=== PATIENT | female | born 1995 | race Caucasian/White ===

== ENCOUNTER 2018-01-18 17:24 | Emergency (ER) | payer SELFPAY ==
[2018-01-18] MEDS ORDERED: NORMAL SALINE 1000 ML 1,000 ML IV ONE ×2 (17:58→22:27)
[2018-01-18] MEDS ORDERED: KETOROLAC TROMETHAMINE INJ/PF 30 MG/1 ML SDV IV ONE (17:58)
[2018-01-18] MEDS ORDERED: ONDANSETRON HCL INJ/PF 4 MG/2 ML SDV IV ONE (17:58)
[2018-01-18] MEDS ORDERED: FENTANYL CITRATE INJ/PF 100 MCG/2 ML AMPUL IV ONE (17:58)
--- NOTE | 2018-01-18 18:00 | ER Document Report ---
ED Medical Screen (RME) - General Chief Complaint: Abdominal Pain Stated Complaint: ABDOMINAL PAIN Time Seen by Provider: 01/18/18 17:51 Notes: 22 years old female with a history of anxiety, bipolar, takes lorazepam 1 mg twice a day for the last 8 years. Presents today with right flank pain and right sided abdominal pain associated with nausea and vomited prior to coming to the ED. She also had constipated since last Sunday, but had a small bowel movement today prior to arrival. Denies any dysuria frequency urgency. Denies any vaginal discharge. Denies being . TRAVEL OUTSIDE OF THE [place] IN LAST 30 DAYS: No - Related Data Allergies/Adverse Reactions: sulfamethoxazole [From Bactrim] Allergy (Verified 01/18/18 17:27) trimethoprim [From Bactrim] Allergy (Verified 01/18/18 17:27) Past Medical History - Social History Chew tobacco use (# tins/day): No Frequency of alcohol use: None Drug Abuse: None Renal/ Medical History: Denies: Hx Peritoneal Dialysis Psychiatric Medical History: Reports: Hx Bipolar Disorder Past Surgical History: Reports: Hx Oral Surgery Physical Exam - Vital signs Vitals: Temp Pulse Resp BP Pulse Ox 99.4 F 104 H 16 105/66 97 01/18/18 17:32 01/18/18 17:32 01/18/18 17:32 01/18/18 17:32 01/18/18 17:32 Course - Vital Signs Vital signs: Temp Pulse Resp BP Pulse Ox 99.4 F 104 H 16 105/66 97 01/18/18 17:32 01/18/18 17:32 01/18/18 17:32 01/18/18 17:32 01/18/18 17:32
[2018-01-18 18:07] LABS: AMORPHOUS SEDIMENT,URINE TRACE /HPF; APPEARANCE,URINE SLIGHTLY-CLOUDY; BILIRUBIN,URINE NEGATIVE (NEGATIVE); COLOR,URINE YELLOW; GLUCOSE, URINE NEGATIVE (NEGATIVE); KETONES,URINE NEGATIVE (NEGATIVE); LEUKOCYTE ESTERASE,URINE LARGE (NEGATIVE); NITRITE,URINE NEGATIVE (NEGATIVE); PROTEIN,URINE NEGATIVE (NEGATIVE); UROBILINOGEN,URINE NEGATIVE mg/dL (<2.0)
[2018-01-18 18:48] LABS: ABSOLUTE BASOPHILS # (AUTO) 0.1 10^3/uL (0.0-0.2); ABSOLUTE EOSINOPHILS # (AUTO) 0.3 10^3/uL (0.0-0.6); ABSOLUTE LYMPHOCYTES (AUTO) 3.2 10^3/uL (0.5-4.7); ABSOLUTE MONOCYTES (AUTO) 0.4 10^3/uL (0.1-1.4); ABSOLUTE NEUT (AUTO) 4.9 10^3/uL (1.7-8.2); BASOPHILS % (AUTO) 1.2 % (0-2); HEMATOCRIT 43.7 % (36.0-47.0); HEMOGLOBIN 15.2 g/dL (12.0-15.5); LYMPHOCYTES % (AUTO) 36.3 % (13-45); MEAN CORPUSCULAR HEMOGLOBIN 33.2 pg (27.0-33.4); MEAN CORPUSCULAR HGB CONC 34.7 g/dL (32.0-36.0); MEAN CORPUSCULAR VOLUME 96 fl (80-97); MONOCYTES % (AUTO) 4.2 % (3-13); PLATELET COUNT 289 10^3/uL (150-450); RED BLOOD COUNT 4.56 10^6/uL (3.72-5.28); RED CELL DISTRIBUTION WIDTH 12.9 % (11.5-14.0); SEGMENTED NEUTROPHILS % (AUTO) 55.3 % (42-78); TOTAL CELLS COUNTED % (AUTO) 100 %; WHITE BLOOD COUNT 8.9 10^3/uL (4.0-10.5)
--- NOTE | 2018-01-18 18:54 | RADIOLOGY REPORT (SQ) ---
EXAM DESCRIPTION: ACUTE ABDOMEN SERIES COMPLETED DATE/TIME: 01/18/2018 6:32 pm REASON FOR STUDY: Abdominal pain COMPARISON: None. NUMBER OF VIEWS: Three views. TECHNIQUE: Frontal chest, supine abdomen and upright/decubitus abdomen radiographic images acquired. LIMITATIONS: None. FINDINGS: CHEST: Lungs clear of infiltrates. FREE AIR: None. No abnormal gas collections. BOWEL GAS PATTERN: Nonobstructive pattern. No dilated loops or air fluid levels. CALCIFICATIONS: No suspicious calcifications. HARDWARE: None in the abdomen. SOFT TISSUES: No gross mass or suggestion of organomegaly. BONES: Levoconvex lateral curvature of the spine at the thoracolumbar junction. OTHER: No other significant finding. IMPRESSION: NO RADIOGRAPHIC EVIDENCE FOR ACUTE ABDOMINAL DISEASE. TECHNICAL DOCUMENTATION: JOB ID: [id number] [employer]- All Rights Reserved Reading location - IP/workstation name: [email or web address]
[2018-01-18 19:04] LABS: ALANINE AMINOTRANSFERASE 61 U/L (9-52); ALKALINE PHOSPHATASE 53 U/L (38-126); ANION GAP 13 (5-19); ASPARTATE AMINO TRANSFERASE 50 U/L (14-36); BILIRUBIN,DIRECT 0.3 mg/dL (0.0-0.4); BILIRUBIN,TOTAL 0.5 mg/dL (0.2-1.3); BLOOD UREA NITROGEN 9 mg/dL (7-20); CALCIUM 10.6 mg/dL (8.4-10.2); CARBON DIOXIDE 30 mmol/L (22-30); CHLORIDE 103 mmol/L (98-107); GLUCOSE 85 mg/dL (75-110); POTASSIUM 4.7 mmol/L (3.6-5.0); SODIUM 145.8 mmol/L (137-145); TOTAL PROTEIN 8.5 g/dL (6.3-8.2)
[2018-01-18] MEDS ORDERED: MORPHINE SULFATE 10 MG/ML INJ IV ONE ×2 (20:57→22:27)
--- NOTE | 2018-01-18 21:00 | ER Document Report ---
ED General - General Chief Complaint: Abdominal Pain Stated Complaint: ABDOMINAL PAIN Time Seen by Provider: 01/18/18 17:51 Mode of Arrival: Ambulatory Information source: Patient Notes: Patient is an otherwise healthy 22-year-old female who presents with chief complaint of mid-abdominal pain that started 2-3 days ago. Patient reports the pain was mild but has increased in intensity. Patient reports that movement and ambulation makes the pain worse. Patient reports that the pain radiates to her right flank. Patient denies any fever, dysuria, urgency or frequency with urination. Patient reports vomiting 1 last night. TRAVEL OUTSIDE OF THE [place] IN LAST 30 DAYS: No - Related Data Allergies/Adverse Reactions: sulfamethoxazole [From Bactrim] Allergy (Verified 01/18/18 17:27) trimethoprim [From Bactrim] Allergy (Verified 01/18/18 17:27) Past Medical History - General Information source: Patient - Social History Smoking Status: Current Every Day Smoker Chew tobacco use (# tins/day): No Frequency of alcohol use: None Drug Abuse: None Family History: Reviewed & Not Pertinent Patient has suicidal ideation: No Patient has homicidal ideation: No Renal/ Medical History: Denies: Hx Peritoneal Dialysis Psychiatric Medical History: Reports: Hx Bipolar Disorder Past Surgical History: Reports: Hx Oral Surgery Review of Systems - Review of Systems Constitutional: No symptoms reported EENT: No symptoms reported Cardiovascular: No symptoms reported Respiratory: No symptoms reported Gastrointestinal: See HPI Genitourinary: No symptoms reported Female Genitourinary: No symptoms reported Musculoskeletal: No symptoms reported Skin: No symptoms reported Hematologic/Lymphatic: No symptoms reported Neurological/Psychological: No symptoms reported Physical Exam - Vital signs Vitals: Temp Pulse Resp BP Pulse Ox 99.4 F 104 H 16 105/66 97 01/18/18 17:32 01/18/18 17:32 01/18/18 17:32 01/18/18 17:32 01/18/18 17:32 - Notes Notes: PHYSICAL EXAMINATION: GENERAL: Well-appearing, well-nourished and in no acute distress. HEAD: Atraumatic, normocephalic. EYES: Pupils equal round and reactive to light, extraocular movements intact, conjunctiva are normal. ENT: Nares patent, oropharynx clear without exudates. Moist mucous membranes. NECK: Normal range of motion, supple without lymphadenopathy LUNGS: Breath sounds clear to auscultation bilaterally and equal. No wheezes rales or rhonchi. HEART: Regular rate and rhythm without murmurs ABDOMEN: Soft, nondistended abdomen. No guarding, no rebound. No masses appreciated. Tenderness to palpation to right lower quadrant and right flank. Female : Normal vaginal exam, no CMT, no pelvic pain, no adnexal tenderness. Musculoskeletal: Normal range of motion, no pitting or edema. No cyanosis. NEUROLOGICAL: Cranial nerves grossly intact. Normal speech, normal gait. Normal sensory, motor exams PSYCH: Normal mood, normal affect. SKIN: Warm, Dry, normal turgor, no rashes or lesions noted. Course - Re-evaluation Re-evalutation: Acute abdominal series is negative for any stool burden. CBC is normal. HCG is negative. Urinalysis reveals moderate blood and large leukocytes. CMP with mildly elevated AST and ALT. Patient reports that her menstrual cycle ended Sunday. Patient with tenderness to the right lower quadrant and right flank. 01/18/18 22:25 CT renal stone study is negative for any renal stones. Patient reevaluated and found to continue to have right flank pain, no pain to right lower quadrant as this has resolved. Will perform pelvic, and order additional IV fluids and analgesics. Patient much improved after dilaudid and additional fluids. Patients vaginal specimens all negative. Will discharge patient with likely pyelonephritis based on urine results and physical exam. Vitals are stable. Unlikely appendicitis due to location of pain. Patient will be instructed to return for repeat evaluation in 12 hours if not improved, sooner if worsening or develops fever. - Vital Signs Vital signs: Temp Pulse Resp BP Pulse Ox 98.4 F 55 L 16 108/62 97 01/18/18 22:44 01/18/18 22:44 01/18/18 22:44 01/18/18 22:44 01/18/18 22:44 - Laboratory Result Diagrams: 01/18/18 18:18 01/18/18 18:18 Laboratory results interpreted by me: 01/18/18 01/18/18 17:30 18:18 Sodium 145.8 H Calcium 10.6 H AST 50 H ALT 61 H Total Protein 8.5 H Urine Blood MODERATE H Ur Leukocyte Esterase LARGE H Discharge - Discharge Clinical Impression: Abdominal pain Qualifiers: Abdominal location: unspecified location Qualified Code(s): R10.9 - Unspecified abdominal pain Urinary tract infection Qualifiers: Urinary tract infection type: acute cystitis Hematuria presence: with hematuria Qualified Code(s): N30.01 - Acute cystitis with hematuria Condition: Stable Disposition: HOME, SELF-CARE Additional Instructions: Pyelonephritis Your evaluation shows evidence of pyelonephritis. This is an infection in the kidney. Typical symptoms are fever, pain in the flank, pain on urination, and frequent urination. Many cases of pyelonephritis can be treated at home. Hospital care may be necessary for patients who are very ill, or elderly or . Pyelonephritis is treated with antibiotics. Be sure to take all the medication as prescribed. Drink plenty of liquids (about three quarts per day) . You may take acetaminophen for fever. You should feel significantly improved within two days. You should have a recheck of your urine in about one week to insure that the infection is gone. Return for a re-examination if your symptoms worsen in any way -- such as high fever, shaking chills, severe weakness or dizziness, severe pain, or inability to pass your urine. ABDOMINAL PAIN: There are many causes of abdominal pain. Pain can mean a serious problem requiring surgery (such as appendicitis). It can also be an innocent problem that goes away on its own (such as a viral infection). Often, time must pass to determine the cause of pain. The physician does not feel that hospitalization is necessary, at present. Things may change within the next 24 hours. Call the doctor or come back for re- examination if any problems occur, such as: (1) Pain that becomes more severe, steady, or becomes concentrated in one specific area. Also, pain that is more severe with movement or coughing. (2) Vomiting that persists or becomes more frequent. (3) Blood in the vomitus, urine, or bowel movements. Blood in the stool may have a tarry or black appearance. (4) Shaking chills or fever greater than 100 degrees F. (5) The abdomen becomes more distended or swollen. (6) Bowel movements cease. (7) Failure to improve as expected. PAIN MEDICATION INJECTION: You have received an injection of a pain medication. You should experience significant pain relief within 45 minutes. This drug is a narcotic - - it will impair your judgement, slow your reaction time and make you sleepy ( as well as relieve your pain). Narcotics also can cause nausea. You should not drive, work with machinery, or perform any task requiring mental alertness until all effects of the medication are gone -- six to eight hours. Do not take any alcohol, or sedatives, and do not take any other medication without checking with your physician. ANTINAUSEA MEDICATION: You have been given a medication to suppress nausea and vomiting. This type of medication can be given as a shot, pill, or suppository. It will usually last for many hours. Pills and shots usually last six to eight hours, suppositories last about 12 hours. For the typical illness, only one or two doses of the medication may be necessary. Mild lightheadedness may occur. This type of medicine can cause drowsiness. Do not drive or operate dangerous machinery while under its influence. Do not mix with alcohol. See your doctor at once if you have muscle spasms or tightness, or uncontrollable motions (particularly of the neck, mouth, or jaw). Persistent vomiting or severe lightheadedness should also be evaluated by the physician. FOLLOW-UP CARE: You should return for re-evaluation in 12 hours if your abdominal pain is still present or sooner if your condition worsens. This follow-up visit is important. If you are unable to return, or feel that the return visit is unnecessary, please call us. Prescriptions: Ciprofloxacin HCl [Cipro 500 mg Tablet] 500 mg PO BID #14 tablet Forms: Return to Work Referrals: [facility] [Provider Group] - Follow up as needed
--- NOTE | 2018-01-18 21:45 | RADIOLOGY REPORT (SQ) ---
EXAM DESCRIPTION: CT LTD RENAL STONE PROTOCOL ON COMPLETED DATE/TIME: 01/18/2018 9:17 pm REASON FOR STUDY: RLQ pain COMPARISON: None. TECHNIQUE: CT scan of the abdomen and pelvis performed without intravenous or oral contrast. Images reviewed with lung, soft tissue, and bone windows. Reconstructed coronal and sagittal MPR images revi ewed. All images stored on PACS. All CT scanners at this facility use dose modulation, iterative reconstruction, and/or weight based d osing when appropriate to reduce radiation dose to as low as reasonably achievable (ALARA). [facility]: Dose Right [facility]: CareDose [facility]: Dose Right [facility]: Teradose 4D [facility]: [employer] RADIATION DOSE: CT Rad equipment meets quality standard of care and radiation dose reduction techniq ues were employed. CTDIvol: 4.8 mGy. DLP: 243 mGy-cm.mGy. LIMITATIONS: None. FINDINGS: LOWER CHEST: No significant findings. No nodules or infiltrates. NON-CONTRASTED LIVER, SPLEEN, ADRENALS: Evaluation limited by lack of IV contrast. No identified sign ificant masses. PANCREAS: No masses. No peripancreatic inflammatory changes. GALLBLADDER: No identified stones by CT criteria. No inflammatory changes to suggest cholecystitis. RIGHT KIDNEY AND URETER: No suspicious masses. Assessment limited by lack of IV contrast. No signif icant calcifications. No hydronephrosis or hydroureter. LEFT KIDNEY AND URETER: No suspicious masses. Assessment limited by lack of IV contrast. No signifi cant calcifications. No hydronephrosis or hydroureter. AORTA AND RETROPERITONEUM: No aneurysm. No retroperitoneal masses or adenopathy. BOWEL AND PERITONEAL CAVITY: No obvious masses or inflammatory changes. No free fluid. APPENDIX: Not visualized. PELVIS, BLADDER, AND ABDOMINAL WALL:No abnormal masses. No free fluid. Bladder normal. BONES: Levoconvex lateral curvature of the spine at the thoraco lumbar junction. OTHER: No other significant finding. IMPRESSION: 1. No evidence of urolithiasis. 2. Examination limited by noncontrast technique and a paucity of peritoneal fat. No discrete CT fernando dence of acute intra- abdominal infectious/ inflammatory process. COMMENT: Quality ID # [id number]: Final reports with documentation of one or more dose reduction techniques (e.g., Automated exposure control, adjustment of the mA and/or kV according to patient size, use of iterative reconstruction technique) TECHNICAL DOCUMENTATION: JOB ID: [id number] [employer]- All Rights Reserved Reading location - IP/workstation name: [email or web address]
[2018-01-18] MEDS ORDERED: CEFTRIAXONE 1 GM/D5W RTU 1 GM/50 ML RTUPB IV ONE (22:42)
[2018-01-18 22:45] VITALS: BP 108/62
[2018-01-18 23:31] LABS: RBCS (WET MOUNT) NO RBCS SEEN; T.VAGINALIS (WET MOUNT) NO TRICHOMONAS SEEN; WBCS (WET MOUNT) NO WBCS SEEN; YEAST (WET MOUNT) NO YEAST SEEN
[2018-01-18] MEDS ORDERED: CEFTRIAXONE INJ 1000 MG VIAL IV ONE (23:45)
[2018-01-18] MEDS ORDERED: CEFTRIAXONE INJ 1000 MG VIAL IV PRN (23:48)
[2018-01-19] MEDS ORDERED: HYDROMORPHONE HCL INJ/PF 2 MG/ML AMPULE IV PRN (00:10)
[2018-01-19] MEDS ORDERED: CIPROFLOXACIN HCL 500 MG TABLET PO ONE (01:31)
[2018-01-19] MEDS ORDERED: ONDANSETRON ODT 4 MG TAB (6 TAB/ER DISP) PO PRN (01:31)
[2018-01-19 02:12] LABS: CHLAM PCR NOT DETECTED (NOT DETECT); GON PCR NOT DETECTED (NOT DETECT)
== END 2018-01-19 01:55 | disposition home or self-care (01) ==
LOC: ER 17:24
DX: N30.01 Acute cystitis with hematuria (principal); R74.0 Nonspecific elevation of levels of transaminase and lactic acid dehydrogenase [LDH]; Z88.1 Allergy status to other antibiotic agents; F17.200 Nicotine dependence, unspecified, uncomplicated
CPT/HCPCS: 96376; 99285; 96361; 96374; 96375; 36415; 87210; 85025; 81025; 80053; 81001; 87491; 87591; 74022; 76380; J3010; J1885; J2270; J1170; J0696; J2405; J7030

== ENCOUNTER 2018-01-20 23:08 | Emergency (ER) | payer SELFPAY ==
--- NOTE | 2018-01-21 00:16 | ER Document Report ---
ED Medical Screen (RME) - General Chief Complaint: Abdominal Pain Stated Complaint: ABDOMINAL PAIN TRAVEL OUTSIDE OF THE [place] IN LAST 30 DAYS: No - HPI Notes: 01/21/18 00:14 22-year-old female presents with abdominal and flank pain. Seen here 2 days ago with similar symptoms, underwent extensive work including labs and CT imaging, all unremarkable except for urine which showed pyuria, hematuria and trace bacteria. Patient's had persistent worsening of symptoms over the last 24 hours. Associated nausea, abdominal pain and right flank pain. - Related Data Allergies/Adverse Reactions: sulfamethoxazole [From Bactrim] Allergy (Verified 01/18/18 17:27) trimethoprim [From Bactrim] Allergy (Verified 01/18/18 17:27) Past Medical History Renal/ Medical History: Denies: Hx Peritoneal Dialysis Psychiatric Medical History: Reports: Hx Bipolar Disorder Past Surgical History: Reports: Hx Oral Surgery Physical Exam - Vital signs Vitals: Temp Pulse Resp BP Pulse Ox 98.3 F 93 18 116/64 98 01/20/18 23:45 01/20/18 23:45 01/20/18 23:45 01/20/18 23:45 01/20/18 23:45 - Notes Notes: Moderate mid abdominal and right upper quadrant tenderness. Right CVAT noted. Remainder exam unremarkable. Course - Re-evaluation Re-evalutation: 01/21/18 00:15 RAPID MEDICAL EVALUATION DISCLOSURE I have seen this patient as part of a Rapid Medical Evaluation and, if applicable, placed any initially appropriate orders. The patient will be seen and fully evaluated, including a full history and physical exam, by a provider ( in Main ED or Fast Track) when a room becomes available. - Vital Signs Vital signs: Temp Pulse Resp BP Pulse Ox 98.3 F 93 18 116/64 98 01/20/18 23:45 01/20/18 23:45 01/20/18 23:45 01/20/18 23:45 01/20/18 23:45
--- NOTE | 2018-01-21 01:05 | ER Document Report ---
ED GI/ - General Mode of Arrival: Ambulatory Information source: Patient TRAVEL OUTSIDE OF THE [place] IN LAST 30 DAYS: No <TINY OLVERA - Last Filed: 01/21/18 01:22> <SIMRAN CORREIA - Last Filed: 01/21/18 02:49> - General Chief Complaint: Abdominal Pain Stated Complaint: ABDOMINAL PAIN Time Seen by Provider: 01/21/18 00:46 Notes: 22 y.o female with bipolar disorder and anxiety presents to the ED with abd pain and RT flank pain of onset 4-5 days ago. Pt was seen here in the ED 2 days ago with the same pain and diagnosed with a UTI and prescribed Cipro. She reports that her pain was better yesterday due to the Cipro and that she slept most of he day but now she complains of worsened pain though out the day today prominently to her mid abdomen. Pt had a CT scan 2 days ago that was initially ordered with contrast but then after only consuming a small amount of contrast went through with the CT. Per my reading of the CT scan there was a large amount of stool to her bowel. Pt reports that she now has not has a BM is 3 days. Pt takes Alprazolam 2mg daily for her anxiety. She states that she is supposed to take Lamictal for her bipolar disorder but that she is not currently taking that regularly. (TINY OLVERA) - Related Data Allergies/Adverse Reactions: sulfamethoxazole [From Bactrim] Allergy (Verified 01/18/18 17:27) trimethoprim [From Bactrim] Allergy (Verified 01/18/18 17:27) Past Medical History - General Information source: Patient - Social History Smoking Status: Current Every Day Smoker Smoking Education Provided: Yes Frequency of alcohol use: None Drug Abuse: None Family History: Reviewed & Not Pertinent Patient has suicidal ideation: No Patient has homicidal ideation: No Renal/ Medical History: Denies: Hx Peritoneal Dialysis Psychiatric Medical History: Reports: Hx Anxiety, Hx Bipolar Disorder Past Surgical History: Reports: Hx Oral Surgery <TINY OLVERA - Last Filed: 01/21/18 01:22> Review of Systems - Review of Systems Constitutional: No symptoms reported EENT: No symptoms reported Cardiovascular: No symptoms reported Respiratory: No symptoms reported Gastrointestinal: See HPI, Abdominal pain, Constipation Genitourinary: See HPI, Flank pain Female Genitourinary: No symptoms reported Musculoskeletal: No symptoms reported Skin: No symptoms reported Hematologic/Lymphatic: No symptoms reported Neurological/Psychological: No symptoms reported -: Yes All other systems reviewed and negative <WADETINY - Last Filed: 01/21/18 01:22> Physical Exam <WADETINY - Last Filed: 01/21/18 01:22> <SIMRAN CORREIA - Last Filed: 01/21/18 02:49> - Vital signs Vitals: Temp Pulse Resp BP Pulse Ox 98.3 F 93 18 116/64 98 01/20/18 23:45 01/20/18 23:45 01/20/18 23:45 01/20/18 23:45 01/20/18 23:45 - Notes Notes: Physical Exam: General: Alert, appears well. Pt curses to answer yes or no. HEENT: Normocephalic. Atraumatic. PERRL. Extraocular movements intact. Oropharynx clear. Neck: Supple. Non-tender. Respiratory: No respiratory distress. Clear and equal breath sounds bilaterally. Cardiovascular: Regular rate and rhythm. Abdominal: Soft. TTP the RUQ and the upper RLQ region. No distension. Normal Bowel Sounds. Back: Non-tender. No deformity or step off. Extremities: Moves all four extremities. Upper extremities: Normal inspection. Normal ROM. Lower extremities: Normal inspection. No edema. Normal ROM. Neurological: Normal cognition. AAOx3. Normal speech. Psychological: Normal affect. Normal Mood. Skin: Warm. Dry. Normal color. (TINY OLVERA) Course - Laboratory Result Diagrams: 01/21/18 00:36 01/21/18 00:36 <TINY OLVERA - Last Filed: 01/21/18 01:22> - Laboratory Result Diagrams: 01/21/18 00:36 01/21/18 00:36 - Diagnostic Test Radiology reviewed: Image reviewed - Gallbladder ultrasound appears to have contracted gallbladder but no abnormalities., Reports reviewed - KUB shows large amount of stool in the pelvic region. <SIMRAN CORREIA - Last Filed: 01/21/18 02:49> - Vital Signs Vital signs: Temp Pulse Resp BP Pulse Ox 98.3 F 93 18 116/64 98 01/20/18 23:45 01/20/18 23:45 01/20/18 23:45 01/20/18 23:45 01/20/18 23:45 - Laboratory Laboratory results interpreted by me: 01/21/18 01/21/18 00:36 01:30 Sodium 146.9 H Calcium 10.5 H AST 41 H ALT 54 H Total Protein 8.4 H Ur Leukocyte Esterase TRACE H Discharge <TINY OLVERA - Last Filed: 01/21/18 01:22> <SIMRAN CORREIA - Last Filed: 01/21/18 02:49> - Discharge Clinical Impression: Abdominal pain Qualifiers: Abdominal location: right lower quadrant Qualified Code(s): R10.31 - Right lower quadrant pain Constipation Qualifiers: Constipation type: unspecified constipation type Qualified Code(s): K59.00 - Constipation, unspecified Condition: Stable Disposition: HOME, SELF-CARE Additional Instructions: Constipation Constipation is a common problem. It is especially likely as you get older. Constipation is a common cause of abdominal pain, but sometimes causes no symptoms at all. Causes of constipation include certain medications, dehydration, diets, inactivity, and low-fiber intake. Rarely, it can be a symptom of underlying disease. The physician has evaluated you for this. Avoid constipation by eating a diet high in fiber, fruits, and vegetables. Drink plenty of liquids. Get regular exercise. If possible, avoid constipating medicines like narcotic pain medication. Some vitamin tablets can cause constipation. Stool softeners may be needed for difficult cases. An excellent stool softener is Konsyl which is available at [facility], and [email or web address] drug store. Just add a teaspoon to a glass of pineapple or orange juice daily or twice a day if needed. Laxatives are useful for occasional constipation. You should use them only when necessary. Too-frequent use can make your bowels dependent on them. Some over the counter laxatives available without prescription are: Milk of Magnesia, 1-2 tablespoons twice a day Dulcolax, 5 mg pill or 10 mg suppository. Citrate of Magnesia, 4-5 ounces a day for a day or two For acute constipation, Fleet's Enemas and Dulcolax suppositories are helpful. Chronic, drawing kiln supervisor use of laxatives or enemas is not a good idea. Your bowel may become dependant on them. You do not need to have a bowel movement every day. Many people do fine with a bowel movement every three or four days. You should call your doctor or return for re-evaluation if you pass blood in the stool, or if you develop fever or increasing abdominal pain. Drink half of the bottle of magnesium citrate tonight. Drink lots of fluids tonight. Consider giving herself a fleets enema to help speed up the process of relieving your constipation. Drink the other half of the bottle of mag citrate throughout the day tomorrow. Try something like MiraLAX every day with a large glass of water until your bowels are moving normally again. Follow-up with a local medical doctor if not improving. RETURN TO THE EMERGENCY ROOM IF ANY NEW OR WORSENING SYMPTOMS. Scribe Attestation: 01/21/18 01:59 I personally performed the services described in the documentation, reviewed and edited the documentation which was dictated to the scribe in my presence, and it accurately records my words and actions. (SIMRAN CORREIA) Scribe Documentation - Scribe Written by Gertrude:: Gertrude Michel 01/21/18 0057 acting as scribe for :: Cornelia <TINY OLVERA - Last Filed: 01/21/18 01:22>
[2018-01-21 01:18] LABS: ABSOLUTE BASOPHILS # (AUTO) 0.1 10^3/uL (0.0-0.2); ABSOLUTE EOSINOPHILS # (AUTO) 0.2 10^3/uL (0.0-0.6); ABSOLUTE LYMPHOCYTES (AUTO) 2.7 10^3/uL (0.5-4.7); ABSOLUTE MONOCYTES (AUTO) 0.3 10^3/uL (0.1-1.4); ABSOLUTE NEUT (AUTO) 5.6 10^3/uL (1.7-8.2); HEMATOCRIT 43.2 % (36.0-47.0); LYMPHOCYTES % (AUTO) 30.6 % (13-45); MEAN CORPUSCULAR HEMOGLOBIN 33.4 pg (27.0-33.4); MEAN CORPUSCULAR HGB CONC 34.7 g/dL (32.0-36.0); MEAN CORPUSCULAR VOLUME 96 fl (80-97); MONOCYTES % (AUTO) 3.5 % (3-13); PLATELET COUNT 280 10^3/uL (150-450); RED BLOOD COUNT 4.49 10^6/uL (3.72-5.28); RED CELL DISTRIBUTION WIDTH 12.5 % (11.5-14.0); SEGMENTED NEUTROPHILS % (AUTO) 62.9 % (42-78); TOTAL CELLS COUNTED % (AUTO) 100 %; WHITE BLOOD COUNT 8.9 10^3/uL (4.0-10.5)
[2018-01-21 01:40] LABS: ALANINE AMINOTRANSFERASE 54 U/L (9-52); ALBUMIN 4.8 g/dL (3.5-5.0); ALKALINE PHOSPHATASE 69 U/L (38-126); ANION GAP 15 (5-19); ASPARTATE AMINO TRANSFERASE 41 U/L (14-36); BILIRUBIN,DIRECT 0.3 mg/dL (0.0-0.4); BILIRUBIN,TOTAL 0.3 mg/dL (0.2-1.3); BLOOD UREA NITROGEN 7 mg/dL (7-20); CALCIUM 10.5 mg/dL (8.4-10.2); CARBON DIOXIDE 27 mmol/L (22-30); CHLORIDE 105 mmol/L (98-107); GLUCOSE 93 mg/dL (75-110); LIPASE 89.2 U/L (23-300); POTASSIUM 4.1 mmol/L (3.6-5.0); SODIUM 146.9 mmol/L (137-145); TOTAL PROTEIN 8.4 g/dL (6.3-8.2)
[2018-01-21 02:08] LABS: APPEARANCE,URINE SLIGHTLY-CLOUDY; BILIRUBIN,URINE NEGATIVE (NEGATIVE); COLOR,URINE YELLOW; GLUCOSE, URINE NEGATIVE (NEGATIVE); KETONES,URINE NEGATIVE (NEGATIVE); LEUKOCYTE ESTERASE,URINE TRACE (NEGATIVE); NITRITE,URINE NEGATIVE (NEGATIVE); PROTEIN,URINE NEGATIVE (NEGATIVE); URINE SPECIFIC GRAVITY 1.015; UROBILINOGEN,URINE NEGATIVE mg/dL (<2.0)
--- NOTE | 2018-01-21 02:11 | RADIOLOGY REPORT (SQ) ---
EXAM DESCRIPTION: XR ABDOMEN 1 VIEW (KUB) COMPLETED DATE/TME: 01/21/2018 01:22 CLINICAL HISTORY: Right abdomen pain COMPARISON: None. FINDINGS: Bowel: No dilated loops of large or small bowel. Peritoneum: No free intraperitoneal air identified. Solid organs: No definite organomegaly. Calcifications: No abnormal calcifications. Bones: Iliac curvature of the lumbar spine. Other: Visualized left lung bases clear. IMPRESSION: Nonobstructive bowel gas pattern.
[2018-01-21] MEDS ORDERED: MAGNESIUM CITRATE 296 ML BOTTLE PO ONE (02:47)
[2018-01-21 03:10] VITALS: BP 120/82
--- NOTE | 2018-01-21 03:13 | RADIOLOGY REPORT (SQ) ---
EXAM DESCRIPTION: US ABDOMEN LIMITED COMPLETED DATE/TME: 01/21/2018 01:22 CLINICAL HISTORY: Right upper quadrant abdominal pain COMPARISON: None. TECHNIQUE: Real-time sonographic images of the right upper abdomen were obtained using a curved multihertz transducer. FINDINGS: Pancreas: The visualized portions of the pancreas are unremarkable. Vascular: The visualized portions of the aorta and IVC are unremarkable. Liver: The liver has normal contour and increased echogenicity. Hepatopedal flow in the portal vein confirmed with color and spectral Doppler imaging.. The common bile duct measures 0.2 cm. Gallbladder: The gallbladder is contracted. Positive reported sonographic Cornejo sign. No definite gallstones identified. Right Kidney: The right kidney measures 9.0 cm in length. No hydronephrosis, solid renal mass, or shadowing calculi. IMPRESSION: 1. The gallbladder is contracted and the patient reports a positive sonographic Cornejo's sign however no definite gallstones identified.
== END 2018-01-21 03:06 | disposition home or self-care (01) ==
LOC: ER 23:08
DX: K59.00 Constipation, unspecified (principal); N39.0 Urinary tract infection, site not specified; F41.9 Anxiety disorder, unspecified; Z79.899 Other long term (current) drug therapy; F31.9 Bipolar disorder, unspecified; T42.6X6A Underdosing of other antiepileptic and sedative-hypnotic drugs, initial encounter; F17.200 Nicotine dependence, unspecified, uncomplicated; Z91.128 Patient's intentional underdosing of medication regimen for other reason; Z91.14 Patient's other noncompliance with medication regimen; Z88.1 Allergy status to other antibiotic agents
CPT/HCPCS: 99284; 36415; 83690; 85025; 81025; 80053; 81001; 74018; 76705; J3490

== ENCOUNTER 2018-04-09 12:09 | Emergency (ER) | payer SELFPAY ==
--- NOTE | 2018-04-09 12:27 | ER Document Report ---
ED Medical Screen (RME) - General Chief Complaint: Vag Bleeding, +preg <12wks Stated Complaint: SPOTTING X2DAYS Time Seen by Provider: 04/09/18 12:20 Mode of Arrival: Ambulatory Information source: Patient Notes: Patient is a 22-year-old female who presents the emergency department with complaints of vaginal bleeding. Patient states that she is 6 weeks 5 days . She is been having brown spotting over the last 2 days. No clots. Patient states that she has been having associated pelvic cramping. She states that the pain cramping stopped this morning. Patient was seen at the [facility] [place] and had an ultrasound done this morning. No embryo or heart tones were appreciated. Patient was sent to the emergency department today for further evaluation. I have greeted and performed a rapid initial assessment of this patient. A comprehensive ED assessment and evaluation of the patient, analysis of test results and completion of the medical decision making process will be conducted by additional ED providers. PHYSICAL EXAMINATION: GENERAL: Well-appearing, well-nourished and in no acute distress. HEAD: Atraumatic, normocephalic. EYES: Pupils equal round extraocular movements intact, conjunctiva are normal. ENT: Nares patent NECK: Normal range of motion LUNGS: No respiratory distress Musculoskeletal: Normal range of motion NEUROLOGICAL: Normal speech, normal gait. PSYCH: Normal mood, normal affect. SKIN: Warm, Dry, normal turgor, no rashes or lesions noted. TRAVEL OUTSIDE OF THE [place] IN LAST 30 DAYS: No - Related Data Allergies/Adverse Reactions: sulfamethoxazole [From Bactrim] Allergy (Verified 01/18/18 17:27) trimethoprim [From Bactrim] Allergy (Verified 01/18/18 17:27) Past Medical History Renal/ Medical History: Denies: Hx Peritoneal Dialysis Psychiatric Medical History: Reports: Hx Anxiety, Hx Bipolar Disorder Past Surgical History: Reports: Hx Oral Surgery Physical Exam - Vital signs Vitals: Temp Pulse Resp BP Pulse Ox 98.7 F 106 H 16 124/71 97 04/09/18 12:17 04/09/18 12:17 04/09/18 12:17 04/09/18 12:17 04/09/18 12:17 Course - Vital Signs Vital signs: Temp Pulse Resp BP Pulse Ox 98.7 F 106 H 16 124/71 97 04/09/18 12:17 04/09/18 12:17 04/09/18 12:17 04/09/18 12:17 04/09/18 12:17
--- NOTE | 2018-04-09 13:01 | ER Document Report ---
ED General - General Chief Complaint: Vag Bleeding, +preg <12wks Stated Complaint: SPOTTING X2DAYS Time Seen by Provider: 04/09/18 12:20 Mode of Arrival: Ambulatory Notes: Patient is a 22-year-old female that is reportedly 4-6 weeks gravid that presents to the emergency department for chief complaint of vaginal spotting. Patient reports that she had an ultrasound performed about 1 week ago for proof of to apply for Medicaid, and she was advised of a repeat one performed today, which she had done, that demonstrated visible yolk sacs that did grow in size, but no heart rate, or embryo noted, estimated gestational age they report it was approximately 4 weeks. She was advised to come to the emergency department to be checked for possible miscarriage. Patient stated she had some brown discharge, but denies any clots, or significant vaginal bleeding. She denies having any pain or cramping. Denies any dysuria or hematuria. She otherwise states she is healthy. Reports that she is O+ based on prior blood testing. Past Medical History: Denies chronic medical conditions Past Surgical History: Denies surgical history Social History: Admits to smoking cigarettes daily, denies alcohol or drug use Family History: Reviewed and noncontributory for presenting illness Allergies: Reviewed, see documented allergy list. REVIEW OF SYSTEMS: Unless otherwise stated in this report the patient's positive and negative responses for review of systems for constitutional, eyes, ENT, cardiovascular, respiratory, gastrointestinal, neurological, genitourinary, musculoskeletal, and integumentary systems and related systems to the presenting problem are either as stated in the HPI or were not pertinent or were negative for the symptoms and/or complaints related to the presenting medical problem. PHYSICAL EXAMINATION: Vital signs reviewed, nursing noted reviewed. GENERAL: Well-appearing, well-nourished and in no acute distress. HEAD: Atraumatic, normocephalic. EYES: Eyes appear normal, extraocular movements intact, sclera anicteric, conjunctiva are normal. ENT: nares patent, oropharynx clear without exudates. Moist mucous membranes. NECK: Normal range of motion, supple without lymphadenopathy LUNGS: Breath sounds clear to auscultation bilaterally and equal. No wheezes rales or rhonchi. HEART: Regular rate and rhythm without murmurs ABDOMEN: Soft, nontender, normoactive bowel sounds. No rebound, guarding, or rigidity. No masses appreciated. Pelvic Exam: With a radio adjuster present the exam was explained to the patient and patient agreed to proceed with exam. On exam, no external lesions or abnormalities noted. Internal speculum exam demonstrated normal appearing cervix, small amount of blood in the vaginal vault, cervical loss was closed. EXTREMITIES: Nontender, good range of motion, no pitting or edema. NEUROLOGICAL: No focal neurological deficits. Moves all extremities spontaneously Motor and sensory grossly intact on exam. PSYCH: Normal mood, normal affect. SKIN: Warm, Dry, normal turgor, no rashes or lesions noted on exposed skin TRAVEL OUTSIDE OF THE [place] IN LAST 30 DAYS: No - Related Data Allergies/Adverse Reactions: sulfamethoxazole [From Bactrim] Allergy (Verified 04/09/18 12:42) trimethoprim [From Bactrim] Allergy (Verified 04/09/18 12:42) Past Medical History - General Information source: Patient Last Menstrual Period: 01/2018 - Social History Smoking Status: Never Smoker Chew tobacco use (# tins/day): No Frequency of alcohol use: None Drug Abuse: None Family History: Reviewed & Not Pertinent Patient has suicidal ideation: No Patient has homicidal ideation: No Renal/ Medical History: Denies: Hx Peritoneal Dialysis Psychiatric Medical History: Reports: Hx Anxiety, Hx Bipolar Disorder Past Surgical History: Reports: Hx Oral Surgery Physical Exam - Vital signs Vitals: Temp Pulse Resp BP Pulse Ox 98.7 F 106 H 16 124/71 97 04/09/18 12:17 04/09/18 12:17 04/09/18 12:17 04/09/18 12:17 04/09/18 12:17 Course - Re-evaluation Re-evalutation: Patient seen and examined vital signs reviewed. Laboratory data and imaging were ordered as appropriate for the patient's presenting symptoms and complaint, with consideration of any critical or life threatening conditions that may be associated with their obtained history and exam as noted above. Patient brought ultrasound results from an outside facility, these are reviewed , reportedly had intrauterine yolk sac, no heart tones noted, no embryo noted Results were reviewed when available and demonstrated hCG greater than 7000, it is difficult to determine whether this is a failed , or just very early , as the patient does not remember her exact first date of her last menstrual period, and her ultrasound results may just be indicative of early , and this is vaginal spotting in early this was discussed with the patient, advised her to follow-up with [facility] Her UA was unremarkable. Patient agreed with this plan of care. Results were discussed with the patient at this point, after careful consideration I feel that that patient can be discharged from the emergency department, the patient was educated treatments and reasons to return to the emergency department based on their presumed diagnosis as noted above, they were advised to followup with a primary care physician in 2-3 days. Patient was agreeable to plan of care. *Note is created using voice recognition software and may contain spelling, syntax or grammatical errors. Laboratory 04/09/18 04/09/18 12:30 13:00 Beta HCG, Quant 7069.90 H Total Beta HCG POSITIVE Urine Color YELLOW Urine Appearance SLIGHTLY-CLOUDY Urine pH 5.0 Ur Specific [place] 1.015 Urine Protein NEGATIVE Urine Glucose (UA) NEGATIVE Urine Ketones NEGATIVE Urine Blood MODERATE H Urine Nitrite NEGATIVE Urine Bilirubin NEGATIVE Urine Urobilinogen NEGATIVE Ur Leukocyte Esterase NEGATIVE Urine WBC (Auto) 2 Urine RBC (Auto) 1 Squamous Epi Cells Auto 1 Urine Mucus (Auto) OCC Urine Ascorbic Acid NEGATIVE - Vital Signs Vital signs: Temp Pulse Resp BP Pulse Ox 99 F 84 18 106/63 97 04/09/18 14:18 04/09/18 14:18 04/09/18 14:18 04/09/18 14:18 04/09/18 14:18 - Laboratory Laboratory results interpreted by me: 04/09/18 04/09/18 12:30 13:00 Beta HCG, Quant 7069.90 H Urine Blood MODERATE H Discharge - Discharge Clinical Impression: Vaginal bleeding during Condition: Stable Disposition: HOME, SELF-CARE Instructions: Bleeding During Early ([facility]) Additional Instructions: Please follow-up with [facility], if you develop lightheadedness, or significant pelvic pain, do not hesitate to return to the emergency department for repeat evaluation. Referrals: [facility] [Provider Group] - Follow up tomorrow (call for appointment. )
[2018-04-09 13:51] LABS: APPEARANCE,URINE SLIGHTLY-CLOUDY; BILIRUBIN,URINE NEGATIVE (NEGATIVE); COLOR,URINE YELLOW; GLUCOSE, URINE NEGATIVE (NEGATIVE); KETONES,URINE NEGATIVE (NEGATIVE); LEUKOCYTE ESTERASE,URINE NEGATIVE (NEGATIVE); NITRITE,URINE NEGATIVE (NEGATIVE); PROTEIN,URINE NEGATIVE (NEGATIVE); URINE SPECIFIC GRAVITY 1.015; UROBILINOGEN,URINE NEGATIVE mg/dL (<2.0)
[2018-04-09 14:19] VITALS: BP 106/63
== END 2018-04-09 14:23 | disposition home or self-care (01) ==
LOC: ER 12:09
DX: O26.859 Spotting complicating pregnancy, unspecified trimester (principal); Z3A.00 Weeks of gestation of pregnancy not specified; Z88.1 Allergy status to other antibiotic agents
CPT/HCPCS: 36415; 81001; 84702; 99284

== ENCOUNTER 2018-04-10 14:36 | Emergency (ER) | payer SELFPAY ==
--- NOTE | 2018-04-10 15:56 | ER Document Report ---
ED Medical Screen (RME) - General Chief Complaint: Vag Bleeding, +preg <12wks Stated Complaint: VAGINAL BLEEDING Time Seen by Provider: 04/10/18 15:50 Notes: 22 years old female was seen here a year today, was and spotting, today having profuse bleeding. Had pelvic exam done yesterday. TRAVEL OUTSIDE OF THE [place] IN LAST 30 DAYS: No - Related Data Allergies/Adverse Reactions: sulfamethoxazole [From Bactrim] Allergy (Verified 04/10/18 14:40) trimethoprim [From Bactrim] Allergy (Verified 04/10/18 14:40) Past Medical History Renal/ Medical History: Denies: Hx Peritoneal Dialysis Psychiatric Medical History: Reports: Hx Anxiety, Hx Bipolar Disorder Past Surgical History: Reports: Hx Oral Surgery Physical Exam - Vital signs Vitals: Temp Pulse Resp BP Pulse Ox 99.5 F 97 16 117/68 99 04/10/18 15:05 04/10/18 15:05 04/10/18 15:05 04/10/18 15:05 04/10/18 15:05 Course - Vital Signs Vital signs: Temp Pulse Resp BP Pulse Ox 99.5 F 97 16 117/68 99 04/10/18 15:05 04/10/18 15:05 04/10/18 15:05 04/10/18 15:05 04/10/18 15:05
[2018-04-10 16:20] LABS: ABSOLUTE BASOPHILS # (AUTO) 0.1 10^3/uL (0.0-0.2); ABSOLUTE EOSINOPHILS # (AUTO) 0.3 10^3/uL (0.0-0.6); ABSOLUTE LYMPHOCYTES (AUTO) 2.5 10^3/uL (0.5-4.7); ABSOLUTE MONOCYTES (AUTO) 0.5 10^3/uL (0.1-1.4); ABSOLUTE NEUT (AUTO) 8.9 10^3/uL (1.7-8.2); BASOPHILS % (AUTO) 0.6 % (0-2); EOSINOPHILS % (AUTO) 2.1 % (0-6); HEMATOCRIT 38.3 % (36.0-47.0); HEMOGLOBIN 13.5 g/dL (12.0-15.5); LYMPHOCYTES % (AUTO) 20.8 % (13-45); MEAN CORPUSCULAR HEMOGLOBIN 33.3 pg (27.0-33.4); MEAN CORPUSCULAR HGB CONC 35.3 g/dL (32.0-36.0); MEAN CORPUSCULAR VOLUME 94 fl (80-97); MONOCYTES % (AUTO) 3.9 % (3-13); PLATELET COUNT 281 10^3/uL (150-450); RED BLOOD COUNT 4.07 10^6/uL (3.72-5.28); RED CELL DISTRIBUTION WIDTH 12.2 % (11.5-14.0); SEGMENTED NEUTROPHILS % (AUTO) 72.6 % (42-78); TOTAL CELLS COUNTED % (AUTO) 100 %; WHITE BLOOD COUNT 12.2 10^3/uL (4.0-10.5)
[2018-04-10 16:30] LABS: APPEARANCE,URINE SLIGHTLY-CLOUDY; BILIRUBIN,URINE NEGATIVE (NEGATIVE); COLOR,URINE YELLOW; GLUCOSE, URINE NEGATIVE (NEGATIVE); KETONES,URINE NEGATIVE (NEGATIVE); LEUKOCYTE ESTERASE,URINE TRACE (NEGATIVE); NITRITE,URINE NEGATIVE (NEGATIVE); PROTEIN,URINE NEGATIVE (NEGATIVE); UROBILINOGEN,URINE NEGATIVE mg/dL (<2.0)
--- NOTE | 2018-04-10 18:18 | RADIOLOGY REPORT (SQ) ---
EXAM DESCRIPTION: U/S OB TRANSVAG W/DOPPLER COMPLETED DATE/TIME: 04/10/2018 6:08 pm REASON FOR STUDY: and vaginal bleeding COMPARISON: None. TECHNIQUE: Transvaginal static and realtime grayscale images acquired of the pelvis. Additional ramone cted spectral and color Doppler images recorded. All images stored on PACs. CLINICAL AGE: Not available. BHCG: Not available. LIMITATIONS: None. FINDINGS: UTERUS: No visualized intrauterine . RIGHT ADNEXA: Normal ovary with normal vascular flow. No adnexal free fluid. No adnexal masses. LEFT ADNEXA: Ovary not identified due to poor acoustical window. No adnexal free fluid. No adnexal masses. FREE FLUID: None. OTHER: No other significant finding. IMPRESSION: NO VISUALIZED INTRA- OR EXTRAUTERINE . ECTOPIC CANNOT BE EXCLUDED. FOLLOW-UP ULTRASOUND AND SERIAL BHCG LEVELS STRONGLY RECOMMENDED TO ACCURATELY ASSESS STATU S. TECHNICAL DOCUMENTATION: JOB ID: [id number] [employer]- All Rights Reserved Reading location - IP/workstation name: [email or web address]
--- NOTE | 2018-04-10 18:55 | ER Document Report ---
ED General - General Chief Complaint: Vag Bleeding, +preg <12wks Stated Complaint: VAGINAL BLEEDING Time Seen by Provider: 04/10/18 15:50 Mode of Arrival: Ambulatory Information source: Patient Notes: This is a 22-year-old female 1 para 1 with vaginal bleeding and abdominal cramping. Patient did have an ultrasound 2 days ago which showed a intrauterine gestational sac with a yolk sac. There was no heartbeat at that time. Yesterday, the patient had a beta quant of 7000. Patient states that she was only spotting at that time and now has more cramping and bleeding. Patient states that the bleeding is actually subsided temporarily. TRAVEL OUTSIDE OF THE [place] IN LAST 30 DAYS: No - HPI Onset: Yesterday Onset/Duration: Gradual Quality of pain: Cramping Severity: Mild Pain Level: Denies Associated symptoms: denies: Chest pain, Fever, Shortness of breath Exacerbated by: Denies Relieved by: Denies Similar symptoms previously: Yes Recently seen / treated by doctor: Yes - Related Data Allergies/Adverse Reactions: sulfamethoxazole [From Bactrim] Allergy (Verified 04/10/18 14:40) trimethoprim [From Bactrim] Allergy (Verified 04/10/18 14:40) Past Medical History - General Information source: Patient - Social History Smoking Status: Current Every Day Smoker Cigarette use (# per day): Yes - Half a pack per day Chew tobacco use (# tins/day): No Frequency of alcohol use: None Drug Abuse: None Lives with: Family Family History: Reviewed & Not Pertinent Patient has suicidal ideation: No Patient has homicidal ideation: No - Medical History Medical History: Negative Renal/ Medical History: Denies: Hx Peritoneal Dialysis Psychiatric Medical History: Reports: Hx Anxiety, Hx Bipolar Disorder Past Surgical History: Reports: Hx Oral Surgery Review of Systems - Review of Systems Constitutional: denies: Chills, Fever EENT: No symptoms reported Cardiovascular: No symptoms reported Respiratory: No symptoms reported Gastrointestinal: No symptoms reported Genitourinary: See HPI Female Genitourinary: See HPI Musculoskeletal: No symptoms reported Skin: No symptoms reported Hematologic/Lymphatic: No symptoms reported Neurological/Psychological: No symptoms reported Physical Exam - Vital signs Vitals: Temp Pulse Resp BP Pulse Ox 99.5 F 97 16 117/68 99 04/10/18 15:05 04/10/18 15:05 04/10/18 15:05 04/10/18 15:05 04/10/18 15:05 Notes: Physical exam: GENERAL: A 22-year-old female, alert and oriented x3, no acute distress HEAD: Atraumatic, normocephalic. EYES: Pupils equal round and reactive to light, extraocular movements intact, sclera anicteric, conjunctiva are normal. ENT: TMs normal, nares patent, oropharynx clear without exudates. Moist mucous membranes. NECK: Normal range of motion, supple without obvious mass or JVD. LUNGS: Breath sounds clear to auscultation bilaterally and equal. No wheezes rales or rhonchi. HEART: Regular rate and rhythm without murmurs, rubs or gallops. ABDOMEN: Soft, normoactive bowel sounds. No tenderness to palpation. No guarding, no rebound. No masses appreciated. Vaginal exam: Deferred. EXTREMITIES: Normal range of motion, no pitting or edema. No clubbing or cyanosis. NEUROLOGICAL: Cranial nerves II through XII grossly intact. Normal speech, moving all extremities. PSYCH: Normal mood, normal affect. SKIN: Warm, Dry, normal turgor, no rashes or lesions noted. Course - Re-evaluation Re-evalutation: 04/10/18 19:01 Patient's blood type is O+ Had a long discussion with the patient and her significant other at the bedside. I have reviewed the ultrasound. I believe this is a miscarriage in progress. I have told him this. I told him its important to follow the beta quant until 0. I have recommended the return for beta quant in 2-3 days. I have advised him to return to the emergency room for worsening pain. - Vital Signs Vital signs: Temp Pulse Resp BP Pulse Ox 99.5 F 97 16 117/68 99 04/10/18 15:05 04/10/18 15:05 04/10/18 15:05 04/10/18 15:05 04/10/18 15:05 - Laboratory Result Diagrams: 04/10/18 16:05 Laboratory results interpreted by me: 04/10/18 04/10/18 04/10/18 16:05 16:05 16:05 WBC 12.2 H Absolute Neutrophils 8.9 H Beta HCG, Quant 2460.20 H Urine Blood LARGE H Ur Leukocyte Esterase TRACE H - Diagnostic Test Radiology reviewed: Image reviewed, Reports reviewed - Reviewed the ultrasound. Discharge - Discharge Clinical Impression: Vaginal bleeding in early Condition: Stable Disposition: HOME, SELF-CARE Additional Instructions: As we discussed, I believe you are having a miscarriage. The drop in the beta quant (the baby level) has been significant and suggests that this is an abnormal . The ultrasound findings also suggest an abnormal . I do expect you to have some more bleeding and cramping. I prescribed some pain medicine for the cramping. It is important that you return for follow-up in 2-3 days for repeat beta quant level. In the meantime, I recommend you return to the emergency room for any worsening pain, feeling faint or any concerns or getting worse. The pain medicine you're taking prescribed as a narcotic. There are several important things you should know about this medicine: 1. Taking narcotics for too long can lead to physical and mental dependence. Take this medicine only if really needed and in the lowest quantity to achieve pain relief. 2. Do not drink alcohol while on this medicine. Alcohol interacts with narcotics and the combination can be dangerous. 3. Do not drive or operate machinery while on this medicine. 4. Narcotics do cause constipation, so drink plenty of fluids and daily stool softeners. Prescriptions: Oxycodone HCl 5 mg PO Q6HP PRN #25 tablet PRN Reason: Forms: Return to Work
[2018-04-10 19:10] VITALS: BP 111/68
== END 2018-04-10 19:38 | disposition home or self-care (01) ==
LOC: ER 14:36
DX: O46.91 Antepartum hemorrhage, unspecified, first trimester (principal); F17.210 Nicotine dependence, cigarettes, uncomplicated; Z3A.00 Weeks of gestation of pregnancy not specified
CPT/HCPCS: 36415; 76817; 81001; 84702; 85025; 86900; 86901; 93976; 99284

== ENCOUNTER → 2018-04-13 | Outpatient (CLI) | payer SELFPAY | LOC: LAB 12:01 | PROVIDERS: ATTEND Emergency Medicine | DX: O03.9 Complete or unspecified spontaneous abortion without complication (principal) | CPT/HCPCS: 36415; 84702 ==

== ENCOUNTER 2018-11-17 16:11 | Emergency (ER) | payer BC ==
[2018-11-17] MEDS ORDERED: ONDANSETRON HCL INJ/PF 4 MG/2 ML SDV IV ONE (17:23)
[2018-11-17] MEDS ORDERED: NORMAL SALINE 1000 ML 1,000 ML IV ONE (17:24)
--- NOTE | 2018-11-17 17:25 | ER Document Report ---
ED Medical Screen (RME) - General Chief Complaint: Abdominal Pain Stated Complaint: ABDOMINAL PAIN Time Seen by Provider: 11/17/18 17:17 Primary Care Provider: DAIJA SOUSA MD [Primary Care Provider] - Follow up as needed TRAVEL OUTSIDE OF THE [place] IN LAST 30 DAYS: No - HPI Notes: 11/17/18 17:24 Patient is a 23-year-old female with a history of anxiety who presents after ref erral from another clinic for evaluation for possible appendicitis. Patient states that she has had umbilical pain and right-sided abdominal pain for the past 5 days. Patient states that she does feel pain all around her abdomen, but that is the worst area. Pain is described as a burning sensation. She is still able to eat and drink without difficulty, but does have nausea. She is urinating normally and having normal bowel movements. Patient states that she just finished her menstrual cycle. No other vaginal odor or discharge. Denies TOSCANO, fever, neck pain, URI, CP, SOB, or rash. I have treated and performed a rapid initial assessment of this patient. A comprehensive ED assessment and evaluation of the patient, analysis of test results and completion of medical decision making process will be conducted by additional ED providers. PHYSICAL EXAMINATION: GENERAL: Well-appearing, well-nourished and in no acute distress. A&Ox4. Answers questions appropriately. LUNGS: Breath sounds clear to auscultation bilaterally and equal. No wheezes rales or rhonchi. HEART: Regular rate and rhythm without murmurs, rubs, gallops. ABDOMEN: Soft, nondistended abdomen. No guarding, no rebound. Normal bowel sounds present. No CVA tenderness bilaterally. + generalized tenderness and to the RLQ (cannot elicit thorough abd exam w/o table, however). Extremities: No cyanosis, clubbing, or edema b/l. NEUROLOGICAL: Normal speech, normal gait. PSYCH: Normal mood, normal affect. - Related Data Allergies/Adverse Reactions: sulfamethoxazole [From Bactrim] Allergy (Verified 11/17/18 16:12) trimethoprim [From Bactrim] Allergy (Verified 11/17/18 16:12) Past Medical History Renal/ Medical History: Denies: Hx Peritoneal Dialysis Psychiatric Medical History: Reports: Hx Anxiety, Hx Bipolar Disorder Past Surgical History: Reports: Hx Oral Surgery Physical Exam - Vital signs Vitals: Temp Pulse Resp BP Pulse Ox 98.9 F 83 18 103/73 97 11/17/18 16:14 11/17/18 16:14 11/17/18 16:14 11/17/18 16:14 11/17/18 16:14 Course - Vital Signs Vital signs: Temp Pulse Resp BP Pulse Ox 98.9 F 83 18 103/73 97 11/17/18 16:14 11/17/18 16:14 11/17/18 16:14 11/17/18 16:14 11/17/18 16:14 Doctor's Discharge - Discharge Referrals: DAIJA SOUSA MD [Primary Care Provider] - Follow up as needed
[2018-11-17 18:01] LABS: ABSOLUTE EOSINOPHILS # (AUTO) 0.2 10^3/uL (0.0-0.6); ABSOLUTE LYMPHOCYTES (AUTO) 2.6 10^3/uL (0.5-4.7); ABSOLUTE MONOCYTES (AUTO) 0.3 10^3/uL (0.1-1.4); ABSOLUTE NEUT (AUTO) 3.5 10^3/uL (1.7-8.2); BASOPHILS % (AUTO) 0.5 % (0-2); EOSINOPHILS % (AUTO) 2.9 % (0-6); HEMATOCRIT 44.8 % (36.0-47.0); HEMOGLOBIN 15.1 g/dL (12.0-15.5); LYMPHOCYTES % (AUTO) 38.8 % (13-45); MEAN CORPUSCULAR HEMOGLOBIN 32.6 pg (27.0-33.4); MEAN CORPUSCULAR HGB CONC 33.7 g/dL (32.0-36.0); MEAN CORPUSCULAR VOLUME 97 fl (80-97); MONOCYTES % (AUTO) 4.9 % (3-13); PLATELET COUNT 314 10^3/uL (150-450); RED BLOOD COUNT 4.64 10^6/uL (3.72-5.28); RED CELL DISTRIBUTION WIDTH 12.7 % (11.5-14.0); SEGMENTED NEUTROPHILS % (AUTO) 52.9 % (42-78); TOTAL CELLS COUNTED % (AUTO) 100 %; WHITE BLOOD COUNT 6.6 10^3/uL (4.0-10.5)
[2018-11-17 18:05] LABS: APPEARANCE,URINE CLEAR; BILIRUBIN,URINE NEGATIVE (NEGATIVE); COLOR,URINE YELLOW; GLUCOSE, URINE NEGATIVE (NEGATIVE); KETONES,URINE NEGATIVE (NEGATIVE); LEUKOCYTE ESTERASE,URINE NEGATIVE (NEGATIVE); NITRITE,URINE NEGATIVE (NEGATIVE); PROTEIN,URINE NEGATIVE (NEGATIVE); URINE SPECIFIC GRAVITY 1.013; UROBILINOGEN,URINE NEGATIVE mg/dL (<2.0)
--- NOTE | 2018-11-17 18:11 | ER Document Report ---
ED GI/ - General Chief Complaint: Abdominal Pain Stated Complaint: ABDOMINAL PAIN Time Seen by Provider: 11/17/18 17:17 Primary Care Provider: DAIJA SOUSA MD [ASSOCIATE] - Follow up as needed Mode of Arrival: Ambulatory Information source: Patient TRAVEL OUTSIDE OF THE [place] IN LAST 30 DAYS: No - HPI Patient complains to provider of: Abdominal pain Notes: 11/17/18 18:09 Patient here with complaints of abdominal pain. The patient was seen in urgent care and sent over here for further evaluation. She states she has been having some intermittent abdominal pain for about 5 days is progressively gotten worse. It is mainly on the right side of her abdomen, although she states it does hurt almost everywhere. She had some nausea, no vomiting or diarrhea. No fever but she has had chills. No dysuria. She is currently at the end of her menstrual cycle, she denies any vaginal discharge. No prior abdominal surgeries. No chest pain or shortness of breath. Pain is now constant, moderate, worse with moving, laughing, nothing seems to make it better. No numbness, tingling, weakness. No headache or blurred vision. No other complaints. - Related Data Allergies/Adverse Reactions: sulfamethoxazole [From Bactrim] Allergy (Verified 11/17/18 16:12) trimethoprim [From Bactrim] Allergy (Verified 11/17/18 16:12) Past Medical History - Social History Smoking Status: Current Every Day Smoker Chew tobacco use (# tins/day): No Frequency of alcohol use: None Drug Abuse: None Family History: Reviewed & Not Pertinent Patient has suicidal ideation: No Patient has homicidal ideation: No Renal/ Medical History: Denies: Hx Peritoneal Dialysis Psychiatric Medical History: Reports: Hx Anxiety, Hx Bipolar Disorder Past Surgical History: Reports: Hx Oral Surgery Review of Systems - Review of Systems -: Yes All other systems reviewed and negative Physical Exam - Vital signs Vitals: Temp Pulse Resp BP Pulse Ox 98.9 F 83 18 103/73 97 11/17/18 16:14 11/17/18 16:14 11/17/18 16:14 11/17/18 16:14 11/17/18 16:14 - Notes Notes: GENERAL: alert, cooperative, nontoxic, no distress. HEAD: normocephalic, atraumatic EYES: conjunctiva pink without discharge, no external redness or swelling. EARS: no external swelling, no external redness NOSE: atraumatic, no external swelling MOUTH/THROAT: mucous membranes moist and pink, posterior pharynx without erythema, swelling, exudate. No trismus or drooling. NECK: soft, supple, full range of motion, no meningismus. CHEST: no distress, lungs clear and equal throughout. No wheezing, rales, rhonchi. CARDIAC: regular rate and rhythm, no murmur, normal capillary refill, normal pulses. No peripheral edema noted. ABDOMEN: Soft, somewhat diffuse tenderness to palpation with most of her tenderness in the right lower quadrant. Voluntary guarding. No rigidity. BACK: full range of motion, patient complains of some tenderness in her abdomen with bilateral CVA percussion. EXTREMITIES: full range of motion of all extremities. No redness, no swelling. NEURO: alert and oriented x 3, no focal deficits, full range of motion of all extremities. PYSCH: appropriate mood, affect. Patient is cooperative. SKIN: pink, warm, dry, no rash. Course - Re-evaluation Re-evalutation: 11/17/18 20:01 Patient is nontoxic-appearing with stable vitals. She is here with complaints of abdominal pain. Been gone for the last several days. She had nausea, no vomiting. She is noted to have tenderness on exam. She is afebrile. White blood cell counts normal. She is noted to have a slight elevation in her LFTs, normal bilirubin. Urinalysis is negative. CT the abdomen pelvis with IV and p.o. contrast shows no acute abnormalities. Due to her elevated LFTs, I did offer to order an ultrasound of the right upper quadrant, the patient declined. She states that is not uncommon for her liver enzymes to go up and down. Instructed that she should have these rechecked by her primary care doctor at the next available appointment. I asked if she had any recent tattoos, blood transfusions or concerns for hepatitis and she says no. She states that she is been tested for hepatitis in the past. Patient instructed to follow-up with her primary care doctor the next available appointment and return if she has any worsening pain, fever, persistent vomiting, or for any further concerns. The patient's emergency department workup and current diagnosis were explained to the patient and or family. Follow-up instructions were provided. Medications if prescribed were discussed. Instructions for when to return to the emergency department including specific worrisome symptoms were discussed with the patient and/or family. - Vital Signs Vital signs: Temp Pulse Resp BP Pulse Ox 98.9 F 83 18 103/73 97 11/17/18 16:14 11/17/18 16:14 11/17/18 16:14 11/17/18 16:14 11/17/18 16:14 - Laboratory Result Diagrams: 11/17/18 17:39 11/17/18 17:39 Laboratory results interpreted by me: 11/17/18 17:39 Sodium 145.8 H Calcium 10.7 H AST 127 H ALT 148 H Total Protein 9.5 H Albumin 5.5 H - Diagnostic Test Radiology reviewed: Image reviewed, Reports reviewed - CT abdomen pelvis negative Discharge - Discharge Clinical Impression: Elevated LFTs Abdominal pain Qualifiers: Abdominal location: generalized Qualified Code(s): R10.84 - Generalized abdominal pain Condition: Stable Disposition: HOME, SELF-CARE Instructions: Abdominal Pain ([facility]) Additional Instructions: Follow-up with your primary care doctor at the next available appointment. Your AST was 127, your ALT was 148, these need to be reevaluated. Avoid drinking alcohol, taking Tylenol or your good E powders or BC powders. Follow-up sooner for worsening pain, high fever, persistent vomiting, or for any further concerns. Forms: Smoking Cessation Education Referrals: [facility] [Provider Group] - Follow up as needed
[2018-11-17 18:16] LABS: ALANINE AMINOTRANSFERASE 148 U/L (9-52); ALBUMIN 5.5 g/dL (3.5-5.0); ALKALINE PHOSPHATASE 75 U/L (38-126); ANION GAP 16 (5-19); ASPARTATE AMINO TRANSFERASE 127 U/L (14-36); BILIRUBIN,DIRECT 0.3 mg/dL (0.0-0.4); BILIRUBIN,TOTAL 0.6 mg/dL (0.2-1.3); BLOOD UREA NITROGEN 10 mg/dL (7-20); CALCIUM 10.7 mg/dL (8.4-10.2); CARBON DIOXIDE 27 mmol/L (22-30); CHLORIDE 103 mmol/L (98-107); GLUCOSE 84 mg/dL (75-110); LIPASE 78.5 U/L (23-300); POTASSIUM 4.5 mmol/L (3.6-5.0); SODIUM 145.8 mmol/L (137-145); TOTAL PROTEIN 9.5 g/dL (6.3-8.2)
[2018-11-17] MEDS ORDERED: KETOROLAC TROMETHAMINE INJ/PF 30 MG/1 ML SDV IV ONE (18:21)
--- NOTE | 2018-11-17 19:16 | RADIOLOGY REPORT (SQ) ---
EXAM DESCRIPTION: CT ABD/PELVIS WITH IV ORAL COMPLETED DATE/TIME: 11/17/2018 7:04 pm REASON FOR STUDY: abd pain COMPARISON: None. TECHNIQUE: CT scan of the abdomen and pelvis performed using helical scanning technique with dynamic intravenous contrast injection. No oral contrast. Images reviewed with lung, soft tissue, and bone windows. Reconstructed coronal and sagittal MPR images reviewed. Delayed images for evaluation of the urinary system also acquired. All images stored on PACS. All CT scanners at this facility use dose modulation, iterative reconstruction, and/or weight based d osing when appropriate to reduce radiation dose to as low as reasonably achievable (ALARA). [facility]: Dose Right [facility]: CareDose [facility]: Dose Right [facility]: Teradose 4D [facility]: Smart [email or web address] CONTRAST TYPE AND DOSE: Contrast agent and dose not specified, please see technologist documentation . RENAL FUNCTION: None required. The patient is less than 50 years old. RADIATION DOSE: Not reported. Please see technologist documentation. LIMITATIONS: None. FINDINGS: LOWER CHEST: No significant findings. No nodules or infiltrates. LIVER: Normal size. No masses. No dilated ducts. SPLEEN: Normal size. No focal lesions. PANCREAS: No masses. No significant calcifications. No adjacent inflammation or peripancreatic fluid collections. Pancreatic duct not dilated. GALLBLADDER: No identified stones by CT criteria. No inflammatory changes to suggest cholecystitis. ADRENAL GLANDS: No significant masses or asymmetry. RIGHT KIDNEY AND URETER: No solid masses. No significant calcifications. No hydronephrosis or hyd roureter. LEFT KIDNEY AND URETER: No solid masses. No significant calcifications. No hydronephrosis or hydr oureter. AORTA AND VESSELS: No aneurysm. No dissection. Renal arteries, SMA, celiac without stenosis. RETROPERITONEUM: No retroperitoneal adenopathy, hemorrhage or masses. BOWEL AND PERITONEAL CAVITY: No masses or inflammatory changes. No free fluid or peritoneal masses. APPENDIX: Not visualized. PELVIS: No mass. No free fluid. Normal bladder. Tampon is present in the vagina. ABDOMINAL WALL: No masses. No hernias. BONES: No significant or acute findings. OTHER: No other significant finding. IMPRESSION: No CT findings to explain abdominal pain. The appendix is not clearly visualized. Ther e are no secondary findings to suggest inflammation. TECHNICAL DOCUMENTATION: JOB ID: [id number] Quality ID # [id number]: Final reports with documentation of one or more dose reduction techniques (e.g., Au tomated exposure control, adjustment of the mA and/or kV according to patient size, use of iterative reconstruction technique) 2010 [employer]- All Rights Reserved Reading location - IP/workstation name: [email or web address]
[2018-11-17 20:03] VITALS: BP 112/62
== END 2018-11-17 20:14 | disposition home or self-care (01) ==
LOC: ER 16:11
DX: R79.89 Other specified abnormal findings of blood chemistry (principal); R10.84 Generalized abdominal pain; R11.0 Nausea; F17.200 Nicotine dependence, unspecified, uncomplicated; Z88.3 Allergy status to other anti-infective agents
CPT/HCPCS: 99284; 96361; 96374; 96375; 36415; 83690; 85025; 81025; 80053; 81001; 74177; J1885; J2405; J7030

== ENCOUNTER 2019-04-25 16:28 | Emergency (ER) | payer BC ==
--- NOTE | 2019-04-25 17:30 | ER Document Report ---
ED Medical Screen (RME) - General Chief Complaint: Abdominal Pain Stated Complaint: ABDOMINAL PAIN Time Seen by Provider: 04/25/19 17:27 Primary Care Provider: SARIAH BALDWIN PA [Primary Care Provider] - Follow up as needed Mode of Arrival: Ambulatory Notes: 23-year-old female presents to ED for complaint of right upper quadrant abdominal pain that radiates around to the back and up the back. She states she has some nausea but no vomiting. She was recently diagnosed with hep C and Sjogren's. She states she was ordered a upper abdominal ultrasound today and had that done this morning at the ultrasound here. She is alert oriented respirations regular nonlabored speaking in full sentences. I have greeted and performed a rapid initial assessment of this patient. A comprehensive ED assessment and evaluation of the patient, analysis of test results and completion of medical decision making process will be conducted by an additional ED providers. TRAVEL OUTSIDE OF THE [place] IN LAST 30 DAYS: No - Related Data Allergies/Adverse Reactions: sulfamethoxazole [From Bactrim] Allergy (Verified 11/17/18 16:12) trimethoprim [From Bactrim] Allergy (Verified 11/17/18 16:12) Past Medical History Renal/ Medical History: Denies: Hx Peritoneal Dialysis Psychiatric Medical History: Reports: Hx Anxiety, Hx Bipolar Disorder Past Surgical History: Reports: Hx Oral Surgery Doctor's Discharge - Discharge Referrals: SARIAH BALDWIN PA [Primary Care Provider] - Follow up as needed
[2019-04-25 18:09] LABS: ABSOLUTE EOSINOPHILS # (AUTO) 0.1 10^3/uL (0.0-0.6); ABSOLUTE LYMPHOCYTES (AUTO) 3.2 10^3/uL (0.5-4.7); ABSOLUTE MONOCYTES (AUTO) 0.3 10^3/uL (0.1-1.4); ABSOLUTE NEUT (AUTO) 3.9 10^3/uL (1.7-8.2); BASOPHILS % (AUTO) 0.5 % (0-2); EOSINOPHILS % (AUTO) 1.8 % (0-6); HEMATOCRIT 41.8 % (36.0-47.0); HEMOGLOBIN 14.4 g/dL (12.0-15.5); LYMPHOCYTES % (AUTO) 42.1 % (13-45); MEAN CORPUSCULAR HEMOGLOBIN 33.5 pg (27.0-33.4); MEAN CORPUSCULAR HGB CONC 34.4 g/dL (32.0-36.0); MEAN CORPUSCULAR VOLUME 97 fl (80-97); MONOCYTES % (AUTO) 4.5 % (3-13); PLATELET COUNT 261 10^3/uL (150-450); RED CELL DISTRIBUTION WIDTH 12.8 % (11.5-14.0); SEGMENTED NEUTROPHILS % (AUTO) 51.1 % (42-78); TOTAL CELLS COUNTED % (AUTO) 100 %; WHITE BLOOD COUNT 7.6 10^3/uL (4.0-10.5)
[2019-04-25 18:20] LABS: APPEARANCE,URINE CLEAR; BILIRUBIN,URINE NEGATIVE (NEGATIVE); COLOR,URINE YELLOW; GLUCOSE, URINE NEGATIVE (NEGATIVE); KETONES,URINE NEGATIVE (NEGATIVE); PROTEIN,URINE NEGATIVE (NEGATIVE); URINE SPECIFIC GRAVITY 1.015; UROBILINOGEN,URINE NEGATIVE mg/dL (<2.0)
[2019-04-25 18:40] LABS: ALBUMIN 5.1 g/dL (3.5-5.0); ALKALINE PHOSPHATASE 58 U/L (38-126); ANION GAP 10 (5-19); ASPARTATE AMINO TRANSFERASE 39 U/L (14-36); BILIRUBIN,DIRECT 0.1 mg/dL (0.0-0.4); BILIRUBIN,TOTAL 0.4 mg/dL (0.2-1.3); BLOOD UREA NITROGEN 9 mg/dL (7-20); CALCIUM 10.4 mg/dL (8.4-10.2); CARBON DIOXIDE 26 mmol/L (22-30); CHLORIDE 104 mmol/L (98-107); GLUCOSE 83 mg/dL (75-110); POTASSIUM 4.2 mmol/L (3.6-5.0); TOTAL PROTEIN 9.2 g/dL (6.3-8.2)
[2019-04-25 18:47] LABS: URINE AMPHETAMINES SCREEN NEGATIVE; URINE BARBITURATES SCREEN NEGATIVE; URINE BENZODIAZEPINES SCREEN UNCONFIRMED POSITIVE; URINE COCAINE SCREEN NEGATIVE; URINE MARIJUANA (THC) SCREEN NEGATIVE; URINE METHADONE SCREEN NEGATIVE; URINE PHENCYCLIDINE SCREEN NEGATIVE
[2019-04-25] MEDS ORDERED: LIDOCAINE 2% VISCOUS SOLN 20 ML UDCUP PO ONE (20:32)
[2019-04-25] MEDS ORDERED: MAG HYDROX/AL HYDROX/SIMETH SUSP 30 ML UDCUP PO ONE (20:32)
--- NOTE | 2019-04-25 20:33 | ER Document Report ---
ED GI/ - General Chief Complaint: Abdominal Pain Stated Complaint: ABDOMINAL PAIN Time Seen by Provider: 04/25/19 17:27 Primary Care Provider: SARIAH BALDWIN PA [Primary Care Provider] - Follow up as needed Mode of Arrival: Ambulatory Information source: Patient Notes: Patient presents complaining of right upper quadrant abdominal pain that started around 10 AM. Patient reports nausea no vomiting. Patient denies any urinary symptoms. Patient denies any concern about . Patient states that she does have a history of hepatitis C. Patient states that her primary doctor ordered an ultrasound that she had an outpatient basis earlier this afternoon. TRAVEL OUTSIDE OF THE [place] IN LAST 30 DAYS: No - HPI Patient complains to provider of: Abdominal pain Onset: This morning Timing/Duration: Gradual Quality of pain: Sharp Pain Level: 5 Location: Epigastric, RUQ Vaginal bleeding (Compared to normal period): None Menstrual period history: denies: Sexual history: Active Associated symptoms: Nausea. denies: Dysuria, Fever, Loss of appetite, Urinary hesitancy, Urinary frequency, Vomiting Exacerbated by: Denies Relieved by: Denies Similar symptoms previously: Yes Recently seen / treated by doctor: Yes - Related Data Allergies/Adverse Reactions: sulfamethoxazole [From Bactrim] Allergy (Verified 11/17/18 16:12) trimethoprim [From Bactrim] Allergy (Verified 11/17/18 16:12) Home Medications: xanax 1mg BID Past Medical History - General Information source: Patient - Social History Smoking Status: Current Every Day Smoker Chew tobacco use (# tins/day): No Frequency of alcohol use: None Drug Abuse: None Occupation: [employer] Family History: Reviewed & Not Pertinent Patient has suicidal ideation: No Patient has homicidal ideation: No - Medical History Medical History: Other - sjorgan Renal/ Medical History: Denies: Hx Peritoneal Dialysis Psychiatric Medical History: Reports: Hx Anxiety, Hx Bipolar Disorder Infectious Medical History: Reports: Hx Hepatitis Past Surgical History: Reports: Hx Oral Surgery Review of Systems - Review of Systems Constitutional: No symptoms reported. denies: Fever EENT: No symptoms reported Cardiovascular: No symptoms reported. denies: Chest pain Respiratory: No symptoms reported. denies: Cough, Short of breath Gastrointestinal: Abdominal pain, Nausea. denies: Diarrhea, Vomiting Genitourinary: No symptoms reported. denies: Dysuria Female Genitourinary: No symptoms reported. denies: Musculoskeletal: Back pain Skin: No symptoms reported Hematologic/Lymphatic: No symptoms reported Neurological/Psychological: No symptoms reported Physical Exam - Vital signs Vitals: Temp Pulse BP Pulse Ox 98.0 F 78 119/77 100 04/25/19 16:56 04/25/19 16:56 04/25/19 16:56 04/25/19 16:56 - General General appearance: Appears well, Alert In distress: None - HEENT Head: Normocephalic Eyes: Normal Conjunctiva: Normal Nasal: Normal Mouth/Lips: Normal Mucous membranes: Normal Neck: Normal, Supple. No: Lymphadenopathy - Respiratory Respiratory status: No respiratory distress Chest status: Nontender Breath sounds: Normal. No: Rales, Rhonchi, Stridor, Wheezing Chest palpation: Normal - Cardiovascular Rhythm: Regular Heart sounds: S1 appreciated, S2 appreciated Murmur: No - Abdominal Inspection: Normal Distension: No distension Bowel sounds: Normal Tenderness: Tender - epig, RUQ, Guarding - Back Back: CVA tenderness - right - Extremities General upper extremity: Normal inspection, Nontender, Normal strength General lower extremity: Normal inspection, Nontender, Normal strength - Neurological Neuro grossly intact: Yes Cognition: Normal Julia Coma Scale Eye Opening: Spontaneous Julia Coma Scale Verbal: Oriented Julia Coma Scale Motor: Obeys Commands Julia Coma Scale Total: 15 - Psychological Associated symptoms: Normal affect, Normal mood - Skin Skin Temperature: Warm Skin Color: Normal Course - Re-evaluation Re-evalutation: 04/25/19 21:20 RN states that patient has eloped. Patient not in department at this time. - Vital Signs Vital signs: Temp Pulse Resp BP Pulse Ox 98.0 F 78 119/77 100 04/25/19 16:56 04/25/19 16:56 04/25/19 16:56 04/25/19 16:56 - Laboratory Result Diagrams: 04/25/19 17:49 04/25/19 17:49 Laboratory results interpreted by me: 04/25/19 04/25/19 17:49 17:49 MCH 33.5 H Calcium 10.4 H AST 39 H Total Protein 9.2 H Albumin 5.1 H 04/25/19 21:28 Labs- Entire Visit 04/25/19 04/25/19 04/25/19 17:49 17:49 17:49 WBC 7.6 RBC 4.30 Hgb 14.4 Hct 41.8 MCV 97 MCH 33.5 H MCHC 34.4 RDW 12.8 Plt Count 261 Lymph % (Auto) 42.1 [place] % (Auto) 4.5 Eos % (Auto) 1.8 Baso % (Auto) 0.5 Absolute Neuts (auto) 3.9 Absolute Lymphs (auto) 3.2 Absolute Monos (auto) 0.3 Absolute Eos (auto) 0.1 Absolute Basos (auto) 0.0 Seg Neutrophils % 51.1 Sodium 139.6 Potassium 4.2 Chloride 104 Carbon Dioxide 26 Anion Gap 10 BUN 9 Creatinine 0.55 Est GFR ( Amer) > 60 Est GFR (MDRD) Non-Af > 60 Glucose 83 Calcium 10.4 H Total Bilirubin 0.4 Direct Bilirubin 0.1 Neonat Total Bilirubin Not Reportable Neonat Direct Bilirubin Not Reportable Neonat Indirect Bili Not Reportable AST 39 H ALT 33 Alkaline Phosphatase 58 Total Protein 9.2 H Albumin 5.1 H Lipase 80.5 Serum HCG, Qual NEGATIVE Urine Color Urine Appearance Urine pH Ur Specific [place] Urine Protein Urine Glucose (UA) Urine Ketones Urine Blood Urine Nitrite (Reflex) Urine Bilirubin Urine Urobilinogen Leukocyte Esterase Rfl Urine RBC (Auto) Urine Bacteria (Auto) Urine WBC (Reflex) Squamous Epi Cells Auto Urine Mucus (Auto) Urine Ascorbic Acid Urine Opiates Screen Urine Methadone Screen Ur Barbiturates Screen Ur Phencyclidine Scrn Ur Amphetamines Screen U Benzodiazepines Scrn Urine Cocaine Screen U Marijuana (THC) Screen 04/25/19 04/25/19 17:49 17:49 WBC RBC Hgb Hct MCV MCH MCHC RDW Plt Count Lymph % (Auto) [place] % (Auto) Eos % (Auto) Baso % (Auto) Absolute Neuts (auto) Absolute Lymphs (auto) Absolute Monos (auto) Absolute Eos (auto) Absolute Basos (auto) Seg Neutrophils % Sodium Potassium Chloride Carbon Dioxide Anion Gap BUN Creatinine Est GFR ( Amer) Est GFR (MDRD) Non-Af Glucose Calcium Total Bilirubin Direct Bilirubin Neonat Total Bilirubin Neonat Direct Bilirubin Neonat Indirect Bili AST ALT Alkaline Phosphatase Total Protein Albumin Lipase Serum HCG, Qual Urine Color YELLOW Urine Appearance CLEAR Urine pH 5.0 Ur Specific [place] 1.015 Urine Protein NEGATIVE Urine Glucose (UA) NEGATIVE Urine Ketones NEGATIVE Urine Blood NEGATIVE Urine Nitrite (Reflex) NEGATIVE Urine Bilirubin NEGATIVE Urine Urobilinogen NEGATIVE Leukocyte Esterase Rfl NEGATIVE Urine RBC (Auto) 1 Urine Bacteria (Auto) TRACE Urine WBC (Reflex) 2 Squamous Epi Cells Auto 3 Urine Mucus (Auto) FEW Urine Ascorbic Acid NEGATIVE Urine Opiates Screen NEGATIVE Urine Methadone Screen NEGATIVE Ur Barbiturates Screen NEGATIVE Ur Phencyclidine Scrn NEGATIVE Ur Amphetamines Screen NEGATIVE U Benzodiazepines Scrn UNCONFIRMED POSITIVE Urine Cocaine Screen NEGATIVE U Marijuana (THC) Screen NEGATIVE - Diagnostic Test Radiology reviewed: Reports reviewed - Reviewed outpatient ultrasound report from earlier today Discharge - Discharge Clinical Impression: Nausea Abdominal pain Qualifiers: Abdominal location: upper abdomen, unspecified Qualified Code(s): R10.10 - Upper abdominal pain, unspecified Disposition: ELOPED Referrals: SARIAH BALDWIN PA [Primary Care Provider] - Follow up as needed
[2019-04-25 21:00] VITALS: BP 119/77
== END 2019-04-25 21:19 | disposition left against medical advice (07) ==
LOC: ER 16:28
DX: R10.11 Right upper quadrant pain (principal); R10.13 Epigastric pain; R10.816 Epigastric abdominal tenderness; R10.811 Right upper quadrant abdominal tenderness; M54.9 Dorsalgia, unspecified; R11.0 Nausea; F17.200 Nicotine dependence, unspecified, uncomplicated; F41.9 Anxiety disorder, unspecified; Z79.899 Other long term (current) drug therapy; Z88.1 Allergy status to other antibiotic agents; Z53.20 Procedure and treatment not carried out because of patient's decision for unspecified reasons
CPT/HCPCS: 36415; 83690; 84703; 85025; 80053; 81001; 80307; J3490; 99281

== ENCOUNTER → 2019-04-25 | Outpatient (CLI) | payer BC ==
--- NOTE | 2019-04-25 09:08 | RADIOLOGY REPORT (SQ) ---
EXAM DESCRIPTION: U/S ABDOMEN LIMITED W/O DOP COMPLETED DATE/TIME: 04/25/2019 8:40 am REASON FOR STUDY: (R94.5)ABNORMAL RESULTS OF LIVER FUNCTION STUDIES R94.5 ABNORMAL RESULTS OF LIVER FUNCTION STUDIES COMPARISON: 01/21/2018 TECHNIQUE: Dynamic and static grayscale images acquired of the abdomen and recorded on PACS. Additio nal selected color Doppler and spectral images recorded. LIMITATIONS: None. FINDINGS: PANCREAS: No masses. Visualized pancreatic duct normal caliber. LIVER: Fatty liver. The liver measures 15.4 cm in length, normal size. LIVER VASCULATURE: Normal directional flow of the main portal vein and hepatic veins. GALLBLADDER: No stones. The gallbladder wall measures 1.5 mm, normal wall thickness. No pericholecys tic fluid. ULTRASOUND-DETECTED CRAWFORD'S SIGN: Negative. INTRAHEPATIC DUCTS AND COMMON DUCT: CBD measures 2.5 mm in diameter, normal. The intrahepatic ducts normal caliber. No filling defects. INFERIOR VENA CAVA: Normal flow. AORTA: No aneurysm. RIGHT KIDNEY: The right kidney measures 10.0 cm in length, normal size. Normal echogenicity. No jose g d or suspicious masses. No hydronephrosis. No calcifications. PERITONEAL AND RIGHT PLEURAL SPACE: No ascites or effusions. OTHER: No other significant findings. IMPRESSION: 1. Fatty liver. 2. Examination is otherwise unremarkable sonographically. TECHNICAL DOCUMENTATION: JOB ID: [id number]- All Rights Reserved Reading location - IP/workstation name: [email or web address]
== END ==
LOC: RAD 08:15
PROVIDERS: ATTEND Physician Assistant
DX: K76.0 Fatty (change of) liver, not elsewhere classified (principal); R94.5 Abnormal results of liver function studies
CPT/HCPCS: 76705

== ENCOUNTER → 2019-09-10 | Outpatient (CLI) | payer BC ==
[2019-09-10 14:03] LABS: A TYPE INFLUENZA AG NEGATIVE (NEGATIVE); B INFLUENZA AG NEGATIVE (NEGATIVE)
--- NOTE | 2019-09-11 11:34 | PDOC RDC NOTE ---
[facility] Note - Note Date Date: 09/10/19 Clinic Date and Primary Care Provider: SARIAH KRUSE PA-C Allergy/ Laboratory: sulfamethoxazole [From Bactrim] Allergy (Verified 11/17/18 16:12) trimethoprim [From Bactrim] Allergy (Verified 11/17/18 16:12) 09/10/19 13:24 Throat Throat Culture - Preliminary Influenza A (Rapid) NEGATIVE (NEGATIVE) 09/10/19 13:24 Influenza B (Rapid) NEGATIVE (NEGATIVE) 09/10/19 13:24 Group A Strep Rapid NEGATIVE (NEGATIVE) 09/10/19 13:24 Notes: 23 year old female presented to [facility] for testing. She had complaints of SOB, sore throat, subjective fever (does not have thermometer), myalgia, cough, right arm pain, and "chest pains". Patient describing chest pain as intermittent chest tightness or inability to take deep breath x 4 days. No history of cardiac concerns or chronic lung disease. Upon assessment, patient found to be pleasant, alert and oriented, in no apparent distress. Full set of vitals completed and found to be within normal limits. Respirations even, nonlabored, and regular. Lung sounds clear to auscultation, diminished in bases. No wheezes, rhonchi or crackles. [employer] < 3 seconds. Regular heart rate and rhythm, S1S2 present, no edema, no JVD distention, no murmurs or arrhythmia. Patient advised to follow-up with PCP who may wish to consider CXR for exclusion of pneumonia. Rapid strep and influenze A/B completed today and found to be negative. COVID-19 swab submitted. Patient advised to self-isolate, follow-up with her PCP for treatment, and report to ER with any worsening shortness of breath, chest pain, or alteration in LOC. Patient and spouse verbalized understanding.
== END ==
LOC: RDC 13:22
PROVIDERS: ATTEND Registered Nurse
DX: Z20.828 Contact with and (suspected) exposure to other viral communicable diseases (principal); R06.02 Shortness of breath; J02.9 Acute pharyngitis, unspecified; R05 Cough; R07.89 Other chest pain
CPT/HCPCS: 36415; 87070; 87635; 87804; 87880; 99211